=== PATIENT | female | born 1985 ===

== ENCOUNTER 2022-12-19 05:27 | Emergency (ER) | payer MEDICAID ==
[~2022-12-19] VITALS: Ht 182.9 cm; Wt 87.0 kg
[2022-12-19 05:29] VITALS: BP 135/83
== END 2022-12-19 08:42 | disposition left against medical advice (07) ==
LOC: ER 05:27
DX: R51.9 Headache, unspecified (principal); Z53.21 Procedure and treatment not carried out due to patient leaving prior to being seen by health care provider
CPT/HCPCS: 99281